=== PATIENT | female | born 1955 | race Caucasian/White ===

== ENCOUNTER 2016-12-21 11:19 | Day surgery (SDC) | payer OTHER ==
[2016-12-21] MEDS ORDERED: IV START KIT ONE (11:24)
[2016-12-21] MEDS ORDERED: LACTATED RINGERS 1,000 ML ONE (11:24)
[2016-12-21] MEDS ORDERED: ONDANSETRON 4 MG/2ML 2 ML VIAL IV PRN (11:36)
[2016-12-21] MEDS ORDERED: LACTATED RINGERS 1,000 ML IV SCH (11:36)
[2016-12-21] MEDS ORDERED: LIDOCAINE 1% 2 ML VIAL ID PRN (11:36)
[2016-12-21] MEDS ORDERED: PROPOFOL 40 ML IV ONE (12:15)
--- NOTE | 2016-12-25 13:14 | SURGPATH ---
[facility] [address] [place] [id number] Patient Name: CELSO WEINER MR#: [id number] : 1955 Gender: F Specimen #: [id number] Collected: 12/21/2016 Received: 12/22/2016 Reported: 12/25/2016 Submitting Phys: LIZ NELSON Copy To Phys: DEMETRIS KIM [facility] Clinical History / Pre-Operative Diagnosis: HISTORY OF POLYPS; ABDOMINAL PAIN Specimen Source / Surgical Procedure Performed: #1-SPLENIC FLEXURE POLYP; #2-RECTAL AT 15 CM X2; #3-RECTAL AT 12 CM Interpretation: 1. COLON, SPLENIC FLEXURE, BIOPSY: - HYPERPLASTIC POLYP. - NO EVIDENCE OF ADENOMATOUS CHANGE OR MALIGNANCY. 2. RECTUM, 15 CM, BIOPSY: - TWO HYPERPLASTIC POLYPS. - NO EVIDENCE OF ADENOMATOUS CHANGE OR MALIGNANCY. 3. RECTUM, 12 CM, BIOPSY: - HYPERPLASTIC POLYP. - NO EVIDENCE OF ADENOMATOUS CHANGE OR MALIGNANCY. Electronically Signed Out Hemant Briones M.D., Ph.D. Gross Description: #1 The specimen is received in a formalin filled container labeled with the patient's name and "splenic flexure polyp". A polypoid beard biopsy is 1.0 x 0.8 x 0.5 cm. Trisected. Totally embedded cassette #1. #2 The specimen is received in a formalin filled container labeled with the patient's name and "rectal polyp at 15 cm x2". Two rice-beard biopsies are 0.3 and 0.4 cm. Totally embedded in cassette #2. #3 The specimen is received in a formalin filled container labeled with the patient's name and "rectal at 12 cm". A polypoid beard biopsy is 0.5 x 0.4 x 0.3 cm. Bisected. Totally embedded in cassette #3. Griffin Choi Microscopic Description: 1. Examination of multiple levels from the colon biopsy at the splenic flexure shows a trisected piece of colonic mucosa with dilated and hyperplastic glands. There is no evidence of adenomatous change or malignancy. 2. Examination of multiple levels from the rectum biopsy at 15 cm shows two fragments of colonic mucosa with dilated and hyperplastic glands. There is no evidence of adenomatous change or malignancy. 3. Examination of multiple levels from the rectum biopsy at 12 cm shows a bisected piece of colonic mucosa with dilated and hyperplastic glands. There is no evidence of adenomatous change or malignancy. 1: [id number] 2: 95994 3: 41295 K63.5 K62.1
== END 2016-12-21 14:34 | disposition home or self-care (01) ==
LOC: SDC 11:19
PROVIDERS: ATTEND Surgery
PROC: 0DBP8ZX Excision of Rectum, Via Natural or Artificial Opening Endoscopic, Diagnostic (ICD-10-PCS; principal; 2016-12-21)
PROC: 0DBL8ZX Excision of Transverse Colon, Via Natural or Artificial Opening Endoscopic, Diagnostic (ICD-10-PCS; 2016-12-21)
DX: Z12.11 Encounter for screening for malignant neoplasm of colon (principal); K63.5 Polyp of colon; K57.30 Diverticulosis of large intestine without perforation or abscess without bleeding; Z86.010 Personal history of colon polyps; M81.0 Age-related osteoporosis without current pathological fracture; F31.9 Bipolar disorder, unspecified; Z72.0 Tobacco use; F12.90 Cannabis use, unspecified, uncomplicated
CPT/HCPCS: 45385; J7120